=== PATIENT | female | born 1980 | race Caucasian/White ===

== ENCOUNTER 2017-05-28 20:24 | Emergency (ER) | payer SELFPAY ==
[~2017-05-28] VITALS: Ht 160 cm; Wt 55.8 kg
[2017-05-28 20:40] VITALS: BP_SYST 114
[2017-05-28] MEDS ORDERED: MECLIZINE HCL 25 MG TABLET (ANITVERT) PO ONE (21:45)
[2017-05-28 23:20] VITALS: BP_SYST 118
== END 2017-05-28 23:20 | disposition home or self-care (01) ==
LOC: SED 20:24
DX: J32.9 Chronic sinusitis, unspecified (principal); R42 Dizziness and giddiness; V43.92XA Unspecified car occupant injured in collision with other type car in traffic accident, initial encounter; Y93.89 Activity, other specified; Y92.89 Other specified places as the place of occurrence of the external cause; Y99.8 Other external cause status
CPT/HCPCS: 70450; 99284; J8597